=== PATIENT | female | born 2000 | race Caucasian/White ===

== ENCOUNTER 2022-11-25 09:24 | Outpatient (CLI) | payer OTHER ==
[2022-11-25] MEDS ORDERED: Iopamidol 300 61% 100 ML VIAL FS ONE (09:36)
== END 2022-11-25 09:25 | disposition home or self-care (01) ==
LOC: CSHCT 09:24
PROVIDERS: ATTEND Internal Medicine Gastroenterology
DX: R10.9 Unspecified abdominal pain (principal); R31.9 Hematuria, unspecified; D64.9 Anemia, unspecified; F43.10 Post-traumatic stress disorder, unspecified; N83.202 Unspecified ovarian cyst, left side; N83.01 Follicular cyst of right ovary; N83.02 Follicular cyst of left ovary
CPT/HCPCS: 74177